=== PATIENT | female | born 1995 | race Caucasian/White ===

== ENCOUNTER 2018-07-27 12:25 | Emergency (ER) | payer OTHER, MEDICAID ==
[~2018-07-27] VITALS: Ht 170.2 cm; Wt 108.9 kg
[~2018-07-27 12:25] MED LIST: CYCLOBENZAPRINE5 MG PO; FLAGYL500 MG PO; IBUPROFEN 800800 M1 PO; NAUSEA MEDICATION; NOHOMEMEDICATIONS; PRENATAL; XANAX 0.5 MG0.5 M1 PO; ZOFRAN ODT4 MG PO
[2018-07-27] MEDS ORDERED: PRENATAL (12:36)
[2018-07-27] MEDS ORDERED: ASPIR 8181 MG PO (12:36)
[2018-07-27] MEDS ORDERED: KEFLEX500 M1 PO (14:34)
[2018-07-27 14:45] VITALS: BP 128/78
== END 2018-07-27 14:45 | disposition home or self-care (01) ==
LOC: M.ERS 12:25
DX: O26.899 Other specified pregnancy related conditions, unspecified trimester (principal); S91.312A Laceration without foreign body, left foot, initial encounter; Z88.0 Allergy status to penicillin; Z3A.00 Weeks of gestation of pregnancy not specified; W22.8XXA Striking against or struck by other objects, initial encounter; Y93.89 Activity, other specified; Y92.89 Other specified places as the place of occurrence of the external cause; Y99.8 Other external cause status

== ENCOUNTER 2019-02-24 10:48 | Emergency (ER) | payer OTHER ==
[~2019-02-24] VITALS: Ht 170.2 cm; Wt 120.2 kg
[~2019-02-24 10:48] MED LIST changes: +ASPIR 8181 MG PO; +KEFLEX500 M1 PO
[2019-02-24] MEDS ORDERED: ZPAK PO (11:19)
[2019-02-24] MEDS ORDERED: MEDROLDOSEPACK PO (11:19)
[2019-02-24 11:37] VITALS: BP 104/58
== END 2019-02-24 11:39 | disposition home or self-care (01) ==
LOC: M.ERS 10:48
DX: Z20.818 Contact with and (suspected) exposure to other bacterial communicable diseases (principal); Z90.89 Acquired absence of other organs; Z88.0 Allergy status to penicillin

== ENCOUNTER 2019-05-09 11:31 | Emergency (ER) | payer OTHER ==
[~2019-05-09] VITALS: Ht 167.6 cm; Wt 126.1 kg
[~2019-05-09 11:31] MED LIST changes: +MEDROLDOSEPACK PO; +ZPAK PO
[2019-05-09] MEDS ORDERED: NORCO 5-325 TA1 EAC1 PO (13:58)
[2019-05-09 14:04] VITALS: BP 125/91
== END 2019-05-09 14:04 | disposition home or self-care (01) ==
LOC: M.ERS 11:31
DX: S63.592A Other specified sprain of left wrist, initial encounter (principal); Z88.0 Allergy status to penicillin; V49.49XA Driver injured in collision with other motor vehicles in traffic accident, initial encounter; Y93.89 Activity, other specified; Y92.89 Other specified places as the place of occurrence of the external cause; Y99.8 Other external cause status

== ENCOUNTER 2019-09-11 20:39 | Emergency (ER) | payer OTHER ==
[~2019-09-11] VITALS: Ht 170.2 cm; Wt 122.5 kg
--- NOTE | ~2019-09-11 | EKG ---
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
[~2019-09-11 20:39] MED LIST changes: +NORCO 5-325 TA1 EAC1 PO
[2019-09-11] MEDS ORDERED: BIRTH CONTROL PO (20:49)
[2019-09-11] MEDS ORDERED: PREDNISONE50 MG PO (22:16)
[2019-09-11] MEDS ORDERED: ZOLOFT100 MG PO (22:16)
[2019-09-11 22:34] LABS: INFLUENZA A ANTIGEN Negative (Negative); INFLUENZA B ANTIGEN Negative (Negative)
[2019-09-11] MEDS ORDERED: SERTRALINE HCL100 MG PO (22:46)
[2019-09-11] MEDS ORDERED: MEDROLDOSEPACK PO (22:46)
[2019-09-11 22:51] VITALS: BP 153/87
== END 2019-09-11 22:51 | disposition home or self-care (01) ==
LOC: M.ERS 20:39
PROVIDERS: Physician Assistant
DX: J21.9 Acute bronchiolitis, unspecified (principal); Z88.0 Allergy status to penicillin

== ENCOUNTER 2021-02-19 17:32 | Emergency (ER) | payer OTHER ==
[~2021-02-19] VITALS: Ht 170.2 cm; Wt 129.3 kg
[~2021-02-19 17:32] MED LIST changes: +BIRTH CONTROL PO; +PREDNISONE50 MG PO; +SERTRALINE HCL100 MG PO; +ZOLOFT100 MG PO
[2021-02-19 19:22] LABS: URINE BILIRUBIN NEGATIVE (Negative); URINE BLOOD NEGATIVE (Negative); URINE CLARITY CLEAR; URINE COLOR YELLOW; URINE GLUCOSE-RANDOM NEGATIVE (Negative); URINE KETONES NEGATIVE (Negative); URINE LEUKOCYTES-REFLEX TRACE (Negative); URINE NITRITE-REFLEX NEGATIVE (Negative); URINE PROTEIN NEGATIVE (Negative); URINE SPECIFIC GRAVITY 1.025 (1.005-1.030); URINE UROBILINOGEN 0.2 E.U./dl (0.2-1.0)
[2021-02-19 19:22] LABS: ABSOLUTE BASOPHILS 0.1 thou/uL (0.0-0.2); ABSOLUTE EOSINOPHILS 0.2 thou/uL (0.0-0.7); ABSOLUTE LYMPHOCYTES 2.4 thou/uL (0.8-5.3); ABSOLUTE MONOCYTES 0.5 thou/uL (0.0-1.2); ABSOLUTE NEUTROPHILS 5.2 thou/uL (1.6-8.1); EOSINOPHILS 2.2 %; HEMATOCRIT 37.5 % (37.0-47.0); HEMOGLOBIN 12.8 gm/dL (12.0-15.0); LYMPHOCYTES 28.8 %; MCH 28.1 pg (26.0-34.0); MCHC 34.1 g/dL (28.0-37.0); MCV 82.6 fL (80.0-100.0); MONOCYTES 6.1 %; MPV 8.8 fl. (7.2-11.1); NUCLEATED RBCS 0 /100WBC; PLATELET COUNT* 244 thou/uL (150-400); POLYS 61.9 %; RBC 4.54 mil/uL (4.20-5.00); RDW-CV 15.2 % (10.5-14.5); WBC 8.4 thou/uL (4.0-11.0)
[2021-02-19 19:30] LABS: AMP/METHAMP Negative (Negative); BARBITURATES Negative (Negative); BENZODIAZEPINES Negative (Negative); COCAINE Negative (Negative); METHADONE Negative (Negative); OPIATES Negative (Negative); PCP Negative (Negative); THC Negative (Negative)
[2021-02-19 19:30] LABS: CALCIUM 9.4 mg/dL (8.5-10.1); CREATININE 0.8 mg/dL (0.6-1.3); MAGNESIUM 2.2 mg/dL (1.8-2.4); POTASSIUM 4.1 mmol/L (3.5-5.1)
[2021-02-19 19:35] LABS: BACTERIA-REFLEX 1-9 Few /HPF (None Seen); SQUAMOUS 0-3 Few /LPF (0-3); URINE RBC 0-2 Rare /HPF (0-2); URINE WBC-REFLEX 0-5 Rare /HPF (0-5)
[2021-02-19 19:36] LABS: CASTS None Seen /LPF (None Seen); CRYSTALS None Seen /LPF (None Seen)
[2021-02-19 21:19] VITALS: BP 145/65
== END 2021-02-19 21:19 | disposition home or self-care (01) ==
LOC: M.ERS 17:32
PROVIDERS: Emergency Medicine; Nurse Practitioner Psychiatric/Mental Health
DX: B34.9 Viral infection, unspecified (principal); R53.83 Other fatigue; R06.02 Shortness of breath; Z20.822 Contact with and (suspected) exposure to COVID-19

== ENCOUNTER 2021-03-21 20:12 | Emergency (ER) | payer OTHER ==
[~2021-03-21] VITALS: Ht 170.2 cm; Wt 129.3 kg
[2021-03-21 21:53] LABS: ABSOLUTE EOSINOPHILS 0.1 thou/uL (0.0-0.7); ABSOLUTE LYMPHOCYTES 1.7 thou/uL (0.8-5.3); ABSOLUTE MONOCYTES 0.3 thou/uL (0.0-1.2); ABSOLUTE NEUTROPHILS 2.6 thou/uL (1.6-8.1); BASOPHILS 0.9 %; EOSINOPHILS 2.2 %; HEMOGLOBIN 11.9 gm/dL (12.0-15.0); LYMPHOCYTES 35.1 %; MCH 26.9 pg (26.0-34.0); MCV 81.4 fL (80.0-100.0); MONOCYTES 7.2 %; MPV 8.8 fl. (7.2-11.1); NUCLEATED RBCS 0 /100WBC; PLATELET COUNT* 203 thou/uL (150-400); POLYS 54.6 %; RBC 4.42 mil/uL (4.20-5.00); RDW-CV 15.1 % (10.5-14.5); WBC 4.8 thou/uL (4.0-11.0)
[2021-03-21 21:59] LABS: CALCIUM 8.8 mg/dL (8.5-10.1); CREATININE 0.8 mg/dL (0.6-1.3); POTASSIUM 3.6 mmol/L (3.5-5.1)
[2021-03-21 23:24] VITALS: BP 146/104
--- NOTE | 2021-03-22 09:42 | EKG ---
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1995 Requested By: Brandy Rodriguez Order Number: [id number] MD: Devon Hinds Measurements Intervals [place] Rate: 80 P: 73 VA: 161 QRS: 86 QRSD: 114 T: 10 QT: 387 QTc: 447 Interpretive Statements Sinus rhythm Probable left atrial enlargement Incomplete right bundle branch block Compared to ECG 09/11/2019 20:44:32 Incomplete right bundle-branch block now present T-wave abnormality no longer present Electronically Signed On 03-22-2021 9:42:01 CDT by Devon Hinds [email or web address] <ELECTRONICALLY SIGNED> By: Devon Hinds MD, FACC 03/22/2142 30 30 Devon Hinds MD, FAC /EPI
== END 2021-03-21 23:25 | disposition home or self-care (01) ==
LOC: M.ERS 20:12
PROVIDERS: Emergency Medicine
DX: M54.6 Pain in thoracic spine (principal); Z20.822 Contact with and (suspected) exposure to COVID-19; Z90.89 Acquired absence of other organs; Z88.0 Allergy status to penicillin; Z91.040 Latex allergy status